=== PATIENT | female | born 1945 | race Caucasian/White ===

== ENCOUNTER 2016-03-24 09:23 | Day surgery (SDC) | payer MEDICARE ==
[~2016-03-24] VITALS: Ht 167.6 cm; Wt 121.0 kg
[~2016-03-24 09:23] MED LIST: 0.9% Sodium Chloride 1,000 ML IV SCH; ALPR2TAB6 PO; ASPI-973 PO; CEPH500C PO; GLIM4TAB2 PO; HYDR25TA4 PO; LEVO125T6 PO; LISI-567 PO; METO25TA99 PO; NPH,100V11 SUBQ; Sodium Chloride LOK Flush 10 mL Syringe IV PRN; fentaNYL-PF 50 mCg/mL 2 mL Inj IVPUSH PRN
[2016-03-24 09:42] VITALS: BP 136/74; PULSE 89; RESP 16; O2SAT 96
[2016-03-24] MEDS ORDERED: ATOR20TA PO (09:46)
[2016-03-24 11:10] VITALS: BP 152/74; PULSE 67; O2SAT 96
[2016-03-24 11:20] VITALS: BP 148/75; PULSE 70; O2SAT 96
[2016-03-24 11:36] VITALS: BP 120/69; PULSE 78; O2SAT 96
--- NOTE | 2016-03-24 21:22 | ENDO ---
[address] [address] ENDOSCOPY PROCEDURE PATIENT: LAURA PAUL : 1945 MR#: [id number] ADMIT: 03/24/2016 JOB ID: [id number] PROCEDURE: Colonoscopy. INDICATION: Patient with a personal history of colon cancer. The patient's ASA classification is 2, Mallampati score is 2. MEDICATIONS: 1. Versed 5 mg. 2. Fentanyl 125 mcg. INSTRUMENT USED: PCF-H180AL. PREP QUALITY: Fair. PROCEDURE DETAILS: After informed consent was obtained, the patient was brought to the GI suite, where she was placed on oxygen via nasal cannula and monitored with continuous pulse oximeter, telemetry, and blood pressure monitoring. A time-out was performed. Then, she was placed in the left lateral decubitus position and medications were administered for sedation. Digital rectal exam was performed which was unremarkable. The colonoscope was then inserted into the rectum and advanced under direct visualization to the cecum, which was identified by the presence of the ileocecal valve and appendiceal orifice. Once the cecum was reached, the colonoscope was withdrawn back into the rectum and the mucosa and lumen were examined. In the rectum, retroflexion was performed. Following retroflexion, remaining air in the rectum was suctioned, and procedure was completed. FINDINGS: 1. In the descending colon, there were two diminutive polyps that were removed with cold biopsy forceps. 2. The sigmoid colon, there were two diminutive polyps that were removed with cold biopsy forceps. 3. Scattered diverticula were seen throughout the sigmoid colon. 4. On retroflexed views in the rectum, small internal hemorrhoids were noted. IMPRESSION: 1. Two descending colon polyps. 2. Two sigmoid polyps. 3. Sigmoid diverticulosis. 4. Internal hemorrhoids. RECOMMENDATIONS: 1. Fiber-rich diet. 2. Repeat colonoscopy pending polyp pathology results. COMPLICATIONS: None. ESTIMATED BLOOD LOSS: Less than 5 mL.
--- NOTE | 2016-03-27 10:09 | PATH ---
SURGICAL PATHOLOGY Attending Physician:Laura Pimentel CASE STATUS: Signed Out PATIENT NAME: LAURA PAUL PID: [id number] : 1945 DATE COLLECTED:03/24/2016 20:36 SPECIMEN: 1: Colon, Biopsy 2: Colon, Biopsy CLINICAL HISTORY: 1). DESCENDING POLYP X1 2). SIGMOID POLYP X2 FINAL DIAGNOSIS: 1.DESCENDING COLON POLYP: HYPERPLASTIC POLYP. 2.SIGMOID COLON POLYP: HYPERPLASTIC POLYP INVOLVING BOTH BIOPSY FRAGMENTS. ICD10 CODE K63.5 GROSS DESCRIPTION: The specimen is received in two formalin filled containers labeled with the patient's name. 1). The specimen is sublabeled "descending polyp" and consists of 2 portions of tissue which aggregate to 0.3 x 0.3 x 0.2 CM. The specimen is entirely submitted in cassette 1A. 2). The specimen is sublabeled "sigmoid polyp" and consists of 2 portions of tissue which aggregate to 0.3 x 0.2 x 0.2 CM. The specimen is entirely submitted in cassette 2A. 03/24/2016 [facility] MICRO DESCRIPTION: See diagnosis. ICD-9 CODES: CPT CODES: 1: 46035 2: 84306 Electronically Signed Out Rolf Cowart MD [facility] [address] [facility], [place] [address] Technical component performed at [facility], [facility] [address], [place], [address]
== END 2016-03-24 23:59 | disposition home or self-care (01) ==
LOC: END 09:23
PROVIDERS: ATTEND Internal Medicine Gastroenterology
DX: Z12.11 Encounter for screening for malignant neoplasm of colon (principal); K63.5 Polyp of colon; K57.30 Diverticulosis of large intestine without perforation or abscess without bleeding; K64.8 Other hemorrhoids; E11.9 Type 2 diabetes mellitus without complications; Z85.038 Personal history of other malignant neoplasm of large intestine; Z79.82 Long term (current) use of aspirin; Z79.899 Other long term (current) drug therapy; Z79.4 Long term (current) use of insulin